=== PATIENT | female | born 1950 | race Caucasian/White ===

== ENCOUNTER 2018-12-11 19:28 | Emergency (ER) | payer MEDICARE, OTHER ==
[~2018-12-11] VITALS: Ht 137.2 cm; Wt 67.3 kg
[2018-12-11 20:33] VITALS: Ht 137.2 cm; Wt 67.3 kg
[2018-12-11] MEDS ORDERED: BENZ-6 PO (21:46)
[2018-12-11] MEDS ORDERED: AZIT250T PO (21:46)
[2018-12-11 22:00] VITALS: BP 153/82; PULSE 110; RESP 20
[2018-12-11] MEDS ORDERED: BENZONATATE 100 MG CAP PO ONE (22:00)
[2018-12-11] MEDS ORDERED: AZITHROMYCIN 250 MG TAB PO ONE (22:00)
[2018-12-11] MEDS ORDERED: METF100010 PO (22:17)
[2018-12-11] MEDS ORDERED: ASPI-817 PO (22:17)
[2018-12-11] MEDS ORDERED: BENA40TA56 PO (22:18)
[2018-12-11] MEDS ORDERED: CALC-834 PO (22:18)
[2018-12-11] MEDS ORDERED: ATOR40TA68 PO (22:19)
[2018-12-11] MEDS ORDERED: NOVMIX SC ×2 (22:20)
--- NOTE | 2018-12-11 23:26 | ERD ---
ER Documentation Chief Complaint Chief Complaint C/O COUGH, ST, FEVER AND EAR ACHE X10 DAYS HPI Patient is a 68-year-old female with hypertension and diabetes who presents with cough. She has had cough for the past 10 days. She is speaking in full sentences. She has chills as well. She felt like she was having pain in her ears and her eyes. Her cough is productive of phlegm. She tried Tylenol. Upon review of old medical records this is the patient's first visit to the emergency department. She goes to a local clinic for her primary care. ROS All systems reviewed and are negative except as per history of present illness. Medications Home Meds Active Scripts Benzonatate* (Tessalon Perle*) 100 Mg Capsule, 100 MG PO Q8H PRN for COUGH, #30 CAP Prov:THOMAS CAMPOS MD 12/11/18 Azithromycin* (Zithromax*) 250 Mg Tablet, 250 MG PO DAILY for 4 Days, TAB Prov:THOMAS CAMPOS MD 12/11/18 Reported Medications Insulin Aspart (Novolog Mix (70/30)) 100 Units/Ml Soln, 55 SC WITH DINNER, EA 12/11/18 Insulin Aspart (Novolog Mix (70/30)) 100 Units/Ml Soln, 75 SC WITH BREAKFAST, VIAL 12/11/18 Atorvastatin* (Atorvastatin*) 40 Mg Tablet, 40 MG PO QHS, #30 TAB 12/11/18 Benazepril Hcl* (Benazepril Hcl*) 40 Mg Tablet, 40 MG PO DAILY, #30 TAB 12/11/18 Calcium Carbonate/Vitamin D3 (Calcium 600 + Vit D 400 Tablet) 1 Each Tablet, 1 EACH PO BID, TAB 12/11/18 Aspirin* (Aspirin* EC) 81 Mg Tablet.dr, 81 MG PO DAILY, TAB 12/11/18 Metformin Hcl* (Metformin Hcl*) 1,000 Mg Tablet, 1000 MG PO WITH BREAKFAST DI NNE, #60 TAB 12/11/18 Allergies Allergies: Coded Allergies: No Known Allergy (Unverified , 12/11/18) PMhx/Soc Positive for hypertension and diabetes Medical and Surgical Hx: pt denies Surgical Hx History of Surgery: No Anesthesia Reaction: No Hx Neurological Disorder: No Hx Respiratory Disorders: No Hx Alcohol Use: No Hx Substance Use: No Hx Tobacco Use: No Smoking Status: Never smoker FmHx Family History: diabetes Physical Exam Vitals Vital Signs Date Temp Pulse Resp B/P (MAP) Pulse Ox O2 O2 Flow FiO2 Time Delivery Rate 12/11/18 98.8 110 20 153/82 98 Room Air 22:00 (105) 12/11/18 99.9 112 20 152/72 96 20:33 (98) Physical Exam Const: No acute distress Head: Atraumatic Eyes: Normal Conjunctiva ENT: Normal External Ears, Nose and Mouth. Neck: Full range of motion. No meningismus. Resp: Clear to auscultation bilaterally Cardio: Regular rate and rhythm, no murmurs Abd: Soft, non tender, non distended. Normal bowel sounds Skin: No petechiae or rashes Back: No midline or flank tenderness Ext: No cyanosis, or edema Neur: Awake and alert Psych: Normal Mood and Affect Results 24 hrs Current Medications Medications Dose Sig/Av Start Time Status Last (Trade) Ordered Route PRN Stop Time Admin Dose Reason Admin 500 mg ONCE ONCE 12/11/18 DC 12/11/18 Azithromycin PO 22:00 22:31 (Zithromax) 12/11/18 22:01 Benzonatate 200 mg ONCE ONCE 12/11/18 DC 12/11/18 (Tessalon) PO 22:00 22:32 12/11/18 22:01 Procedures/MDM Patient is a 68-year-old female who presents with what appears to be an acute bronchitis. I hear no signs of pneumonia at this time and the patient is otherwise well-appearing. However given her symptoms of cough with phlegm and the fact that she has had these for more than 10 days I would treat her with Zithromax. The first dose was given in the emergency department along with Tessalon for cough. She will be discharged but will do follow-up with her clinic within 1 week for reevaluation. She can return for any worsening symptoms. Departure Diagnosis: Primary Impression: Bronchitis Condition: Fair Patient Instructions: Bronchitis, Antiobiotic Treatment (Adult) Referrals: Your doctor Additional Instructions: Llame al doctor tariq tamayo (Referral Sources) MAANA y dawood adan MARYAM PARA DENTRO DE ADAN SEMANA. Dgale a la secretaria que nosotros le instruimos hacer esta maryam.Avise o llame si ling condicin se empeora antes de la maryam. THOMAS CAPMOS MD Dec 11, 2018 23:26
== END 2018-12-11 22:50 | disposition home or self-care (01) ==
LOC: E/R 19:28
DX: J40 Bronchitis, not specified as acute or chronic (principal); E11.9 Type 2 diabetes mellitus without complications; I10 Essential (primary) hypertension; Z79.4 Long term (current) use of insulin; Z79.82 Long term (current) use of aspirin
CPT/HCPCS: 99283